=== PATIENT | male | born 1970 | race Caucasian/White ===

== ENCOUNTER 2019-09-28 09:41 | Emergency (ER) | payer MEDICAID, SELFPAY ==
--- NOTE | 2019-09-28 09:45 | DI.RAD_ITS ---
EXAM: XR FOOT RT LIMITED CLINICAL HISTORY: pain at foot dorsum, s/p achilles repair TECHNIQUE: COMPARISON: No exams were available for comparison FINDINGS: Two views were obtained. There are mild degenerative changes of the IP joints and joints of the midf oot. No gross erosive or destructive lesion. No evidence of fracture. If there is a clinical suspicion of osteomyelitis additional evaluation with MR may be considered. IMPRESSION:
[2019-09-28 09:46] VITALS: BP 118/75; PULSE 103; RESP 18; TEMP 37.2; O2SAT 100
--- NOTE | 2019-09-28 09:58 | ED.GENADUL_ITS ---
Discharge Plan Disposition Patient Disposition: HOME Condition: Stable Discharge Details Chief Complaint: Orthopedic Clinical Impression: Foot pain, right Primary Care Provider: None,None ED Provider: Philip Arroyo Home Meds and New Rx's Prescriptions: Discontinued aspirin 500 mg Tablet 3,000 mg PO Q6H RF: 0 ibuprofen [Advil] 200 mg Tablet 1,200 mg PO Q6H PRNRF: 0 Discharge Instructions Instructions: Leg Pain (ED) Additional Instructions: May use crutches if needed to alleviate pain with weightbearing. You may continue the previously prescribed tramadol 50 mg tablets as received from Dr. Mederos on September 25 and filled on September 26. Please see him again this week for recheck. You should follow-up with Dr. Malone in [facility]. May use Tylenol 650 mg every 4-6 hours, ibuprofen 800 mg every 8 hours with food, as needed for pain with the previously prescribed tramadol. Continue to use walking boot until you are seen by your orthopedist for recheck. Medical Decision Making 49-year-old male who lives out of area complains of 4 days ago he kicked a wall with unprotected right lower extremity that is months status post successful Achilles tendon repair. He also notes he recently had a frostbite injury to the affected foot. He placed himself in a walking boot but states has had escalating pain over 4 days time particularly on the ball of the foot is worse with walking. No new fever or chills. The pain is been refractive to Tylenol and ibuprofen. Under direct questioning by myself and nurse Sonia, the patient said he had not seen another provider for this problem nor had he any prescription medications. A [place] prescription monitoring system screen reveals tramadol 50 mg tablets, quantity 60, prescribed on September 25 and filled on September 26. [facility] notes recent prescriptions for Suboxone, oxycodone, diazepam. Patient referred for x-ray which does not reveal acute bony injury. Discussed with him that he will need to continue his previously prescribed medications, follow-up with his primary care physician, continue to use the walking boot with crutches if needed until he can be seen for recheck by his primary care physician. Does not appear to be acute reinjury of the Achilles, but we will treat him for strain with the protection of the boot. HPI General Mode of arrival: ambulatory . Date/Time Provider Initiated Documentation: 09/28/19 09:42 . Limitations to Documentation: no limitations . Information obtained by: patient . History of Present Illness 49 year old M presents to the emergency department with the chief complaint of Right foot pain after kicking a wall 4 days ago, s/p Achilles repair, described as moderate, Quality is described as dull, and is localized to the right and lower extremity. Patient reports no radiation. Patient started experiencing this day(s) and it has been constant. Rest improves symptom(s), Movement worsens symptoms . Patient notes other (No other injury, no new weakness); denies fever/chills and weakness. Patient did receive the following treatments prior to arrival, NSAID and other (Tylenol) Related Data Allergies Allergy/AdvReac Type Severity Reaction Status Date / Time No Known Allergies Allergy Unverified 09/28/19 09:53 General Stated Complaint: Orthopedic FAUSTO: 4 Review of Systems Narrative: Patient is from out of area. Placed himself in a walking boot. No new skin injury. He recently suffered frostbite to the affected extremity. This is been debrided and followed by physician from patient's hometown area. [facility] Social History Smoking/Tobacco Use Status: Current every day Alcohol Intake: former Drug use: Occasionally Substance use type: marijuana Details: quit ETOH x 1 month--had DT's Do you feel safe at home: Yes Do you feel safe in your relationship?: Yes Exam Narrative Exam Narrative: GEN: awake, alert, oriented 3. Pleasant, well groomed, interactive, anxious. HEAD: Normocephalic, atraumatic ENT: Mucous membranes moist, oropharynx unremarkable, External ear exam unremarkable EYES: PERRL, EOMI NECK: Full ROM, no JESUSITA, no menigismus CHEST/RESP: Nontender, clear to auscultation bilateral, no wheeze/rhonchi/rales CARDIOVASCULAR: RRR, no murmur, rub farnces. 2+ Rad pulse bilateral EXT: Left lower extremity unremarkable, right lower extremity with healed surgical incision, atrophy throughout the lower extremity, I am able to passively dorsiflex the foot slightly with compression of the calf and Achilles. The patient has motor intact of the right lower extremity with motor graded 4 out of 5. Sensation is intact throughout. There is areas of demarcated dry gangrene of the right great toe distally. There is some peeling skin of the heel. There is no evidence of erythema or warmth. Capillary refill is less than 2 seconds. Neuro: Grossly normal neurologic exam, conversant, interactive. Psych: Speech fluent, thoughts congruent, affect normal Course Vital Signs Vital signs: Vital Signs Temperature 37.2 C 09/28/19 09:46 Pulse 103 H 09/28/19 09:46 Respiratory Rate 18 09/28/19 09:46 Blood Pressure 118/75 09/28/19 09:46 Pulse Oximetry 100 09/28/19 09:46 Temperature 37.2 C 09/28/19 09:46 Temperature Source Temporal Artery Scan 09/28/19 09:46 Pulse 103 H 09/28/19 09:46 Respiratory Rate 18 09/28/19 09:46 Respiratory Effort Non-Labored 09/28/19 09:50 Blood Pressure 118/75 09/28/19 09:46 Blood Pressure Position Supine 09/28/19 09:46 Pulse Oximetry 100 09/28/19 09:46 Oxygen Delivery Method Room Air 09/28/19 09:46 Oxygen Flow Rate 0 09/28/19 09:46 Pain Level 10 09/28/19 09:46
[2019-09-28] MEDS: Ketorolac 30 MG/ML VIAL IM (10:06)
--- NOTE | 2019-09-28 10:48 | DI.VRAD_ITS ---
PROCEDURE INFORMATION: Exam: XR Right Toe(s) Exam date and time: 09/28/2019 10:24 AM Age: 49 years old Clinical indication: Heel; Right; Prior surgery; Surgery date: 1-6 months; Surgery type: Pain at foot dorsum, S/P achilles repair 4 months ago; Additional info: Skin sloughing and blackening of R great toe TECHNIQUE: Imaging protocol: XR Right toes. Views: Minimum 2 views. COMPARISON: No relevant prior studies available. FINDINGS: Bones/joints: Hammertoe deformities of the 2nd through 5th digits. No acute fracture. No radiographic evidence of osteomyelitis. Soft tissues: Normal. IMPRESSION: 1. No acute fracture. 2. No radiographic evidence of osteomyelitis. Dictated and Authenticated by: Radha Zamora MD. Ordering:LEOLA Palacios MD
== END 2019-09-28 10:58 | disposition home or self-care (01) ==
LOC: ER 10:54
PROVIDERS: Emergency Provider Emergency Medicine
DX: M79.671 Pain in right foot (principal); W22.09XA Striking against other stationary object, initial encounter
CPT/HCPCS: 96372; 99284; 73620; J1885